=== PATIENT | female | born 1970 | race Caucasian/White ===

== ENCOUNTER 2017-07-06 02:32 | Emergency (ER) | payer SELFPAY ==
[~2017-07-06] VITALS: Ht 167.6 cm; Wt 106.5 kg
[2017-07-06 02:35] VITALS: BP 144/76; PULSE 94; RESP 18; TEMP 98.5; O2SAT 98
--- NOTE | 2017-07-06 03:09 | PD ---
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 The patient is having pain in the top of the foot up the calf on the left leg back all the way up to the inguinal area of her leg. Patient has a" high tolerance for pain" and this is really " excruciating " On initial exam there is no swelling no obvious injury ...she has got a +2+ pedal pulse comparing feet they appear the same . PFSH Past Medical History Diabetes: Yes Patient Takes Glucophage: No Tetanus Vaccination: < 5 Years Influenza Vaccination: No ?: Not LMP: 07/06/17 Tubal Ligation: Yes Social History Alcohol Use: No Tobacco Use: Yes (1/2ppd) Substance Use: No Allergies-Medications (Allergen,Severity, Reaction): Coded Allergies: codeine (Verified Allergy, Unknown, 07/06/17) Reported Meds & Prescriptions Reported Meds & Active Scripts Active Valium (Diazepam) 2 Mg Tab 2 Mg PO BID PRN Ibuprofen 600 Mg Tab 600 Mg PO Q6H PRN Review of Systems Except as stated in HPI: all other systems reviewed are Neg Physical Exam Narrative GENERAL: pt non toxic appearance and, no active distress SKIN: Warm and dry. HEAD: Atraumatic. Normocephalic. EYES: Pupils equal and round. No scleral icterus. No injection or drainage. ENT: No nasal bleeding or discharge. Mucous membranes pink and moist. NECK: Trachea midline. No JVD. CARDIOVASCULAR: Regular rate and rhythm. RESPIRATORY: No accessory muscle use. Clear to auscultation. Breath sounds equal bilaterally. GASTROINTESTINAL: Abdomen soft, non-tender, nondistended. Hepatic and splenic margins not palpable. MUSCULOSKELETAL: Extremities pedal pulses 2+ bialteral no swelling no hematoma to foot, geoff exam of lower extremities .....without clubbing, cyanosis, or edema. No obvious deformities. NEUROLOGICAL: Awake and alert. No obvious cranial nerve deficits. Motor grossly within normal limits. Five out of 5 muscle strength in the arms and legs. Normal speech. PSYCHIATRIC: Appropriate mood and affect; insight and judgment normal. Data Data Last Documented VS Orders Orders Ketorolac Inj (Toradol Inj) (07/06/17 03:15) Diazepam (Valium) (07/06/17 03:15) Foot, Complete ([id number]) (07/06/17 ) MDM Medical Decision Making Medical Screen Exam Complete: Yes Emergency Medical Condition: Yes Differential Diagnosis sprian , vs strain , contusion vs fracture other Narrative Course xrays negative toradol and valium for muscle pain Rx few valiyum and Ibupprofen Diagnosis Primary Impression: Foot contusion Qualified Codes: S90.32XA - Contusion of left foot, initial encounter Patient Instructions: Contusion in Adults (ED), General Instructions Scripts Diazepam (Valium) 2 Mg Tab 2 MG PO BID Y for MUSCLE SPASM, #10 TAB 0 Refills Prov: Tal Meyer MD 07/06/17 Ibuprofen (Ibuprofen) 600 Mg Tab 600 MG PO Q6H Y for Pain/Inflammation, #30 TAB 0 Refills Prov: Tal Meyer MD 07/06/17 Disposition: 01 DISCHARGE HOME Condition: Good Tal Meyer MD Jul 06, 2017 03:09
[2017-07-06] MEDS ORDERED: DIAZEPAM 5 MG TAB PO ONE (03:15)
[2017-07-06] MEDS ORDERED: KETOROLAC TROMETHAMINE 60 MG/2 ML (IM) VIAL IM ONE (03:15)
--- NOTE | 2017-07-06 04:13 | RADRPT ---
EXAM DATE/TIME: 07/06/2017 03:28 [facility] COMPARISON: No previous studies available for comparison. INDICATIONS : Pain and trauma to foot. MEDICAL HISTORY : None. SURGICAL HISTORY : None. ENCOUNTER: Initial ACUITY: 3 days PAIN SCORE: 8/10 LOCATION: Left foot, lateral & dorsal. FINDINGS: Three view examination of the left foot demonstrates no soft tissue swelling, dislocation, or fractur e. The tarsal bones appear intact. The interphalangeal and metatarsophalangeal joints are intact. The calcaneus is intact. Small plantar calcaneal spur. Bony mineralization is normal. CONCLUSION: No evidence of recent bony injury. Baldomero Doshi MD on July 06, 2017 at 4:11 Board Certified Radiologist. This report was verified electronically.
[2017-07-06] MEDS ORDERED: DIAZ2 PO (04:38)
[2017-07-06] MEDS ORDERED: IBUP-232 PO (04:38)
== END 2017-07-06 04:46 | disposition home or self-care (01) ==
LOC: NEPC 02:32
DX: S90.32XA Contusion of left foot, initial encounter (principal); E11.9 Type 2 diabetes mellitus without complications; F17.210 Nicotine dependence, cigarettes, uncomplicated; X58.XXXA Exposure to other specified factors, initial encounter; Y99.0 Civilian activity done for income or pay; Z88.5 Allergy status to narcotic agent
CPT/HCPCS: 73630; 96372; 99283; J1885